=== PATIENT | male | born 1960 | race Caucasian/White ===

== ENCOUNTER 2024-03-02 08:45 | Outpatient (RCR) | payer MEDICARE, SELFPAY | END 2024-05-05 09:51 | disposition home or self-care (01) | PROVIDERS: PCP Family Medicine; Visit Provider Family Medicine | DX: M25.562 Pain in left knee (principal); M25.561 Pain in right knee; Z51.89 Encounter for other specified aftercare; G89.29 Other chronic pain | CPT/HCPCS: 97110; 97112; 97161 ==